=== PATIENT | female | born 1950 | race Caucasian/White ===

== ENCOUNTER → 2018-07-22 11:36 | Outpatient (CLI) | payer MEDICARE, SELFPAY ==
--- NOTE | 2018-07-22 | DI.MG.S_ITS ---
BILATERAL DIGITAL SCREENING MAMMOGRAM 3D/2D WITH CAD: 07/22/2018 CLINICAL: Routine screening. Baseline exam. No prior exams were available for comparison. The tissue of both breasts is extremely dense, which lowers the sensitivity of mammography. Current study was also evaluated with a Computer Aided Detection (CAD) system. No significant masses, calcifications, or other findings are seen in either breast. IMPRESSION: NEGATIVE There is no mammographic evidence of malignancy. A 1 year screening mammogram is recommended. This exam was interpreted at Station ID: [id number]. NOTE: For mammograms, a report in lay terms will be sent to the patient. Approximately 15% of breast malignancies will not be visualized mammographically. In the management of a palpable breast mass, a negative mammogram must not discourage biopsy of a clinically suspicious lesion. Electronically Signed By: Isabelle valentin/chana:07/22/2018 12:36:55 letter sent: Normal Exam ACR BI-RADS Category 1: Negative 3341F
== END ==
PROVIDERS: PCP Internal Medicine; Visit Provider Internal Medicine
DX: Z12.31 Encounter for screening mammogram for malignant neoplasm of breast (principal); M85.88 Other specified disorders of bone density and structure, other site; Z78.0 Asymptomatic menopausal state; Z82.62 Family history of osteoporosis
CPT/HCPCS: 77063; 77067; 77080

== ENCOUNTER → 2018-10-23 10:32 | Outpatient (CLI) | payer MEDICARE, SELFPAY ==
[2018-10-23 12:28] LABS: Alanine Aminotransferase 28 IU/L (9-52); Albumin 4.3 g/dL (3.5-5.0); Albumin Globulin Ratio 1.6 (1.0-2.8); Alkaline Phosphatase 63 U/L (38-126); Aspartate Aminotransferase 23 IU/L (14-36); Bilirubin Total 0.5 mg/dL (0.2-1.3); Blood Urea Nitrogen 20 mg/dL (7-17); Calcium 9.1 mg/dL (8.4-10.2); Carbon Dioxide 27 mmol/L (22-32); Chloride 103 mmol/L (98-107); Cholesterol 194 mg/dL (140-199); Estimated Glomerular Filt Rate > 60.0 mL/min (>60); Globulin 2.7 g/dL (1.7-4.1); Glucose 77 mg/dL (80-110); HDL Cholesterol 75 mg/dL (40-60); HEMOLYSIS < 15 (0-50); LDL Cholesterol Calculated 100 mg/dL (<100); Potassium 4.4 mmol/L (3.4-5.1); Sodium 139 mmol/L (137-145); Triglycerides 93 mg/dL (35-150)
== END ==
PROVIDERS: PCP Internal Medicine; Visit Provider Internal Medicine
DX: Z13.1 Encounter for screening for diabetes mellitus (principal); Z13.220 Encounter for screening for lipoid disorders; E78.5 Hyperlipidemia, unspecified
CPT/HCPCS: 36415; 80053; 80061

== ENCOUNTER → 2019-08-08 12:36 | Outpatient (CLI) | payer MEDICARE, SELFPAY ==
--- NOTE | 2019-08-08 | DI.MG.S_ITS ---
BILATERAL DIGITAL SCREENING MAMMOGRAM 3D/2D WITH CAD: 08/08/2019 CLINICAL: Routine screening. Comparison is made to exam dated: 07/22/2018 [facility]. The tissue of both breasts is extremely dense, which lowers the sensitivity of mammography. Current study was also evaluated with a Computer Aided Detection (CAD) system. No significant masses, calcifications, or other findings are seen in either breast. There has been no significant interval change. IMPRESSION: NEGATIVE There is no mammographic evidence of malignancy. A 1 year screening mammogram is recommended. This exam was interpreted at Station ID: [id number]. NOTE: For mammograms, a report in lay terms will be sent to the patient. Approximately 15% of breast malignancies will not be visualized mammographically. In the management of a palpable breast mass, a negative mammogram must not discourage biopsy of a clinically suspicious lesion. Electronically Signed By: Isabelle valentin/chana:08/10/2019 10:48:52 letter sent: Normal Exam ACR BI-RADS Category 1: Negative 3341F
== END ==
PROVIDERS: PCP Internal Medicine; Visit Provider Internal Medicine
DX: Z12.31 Encounter for screening mammogram for malignant neoplasm of breast (principal)
CPT/HCPCS: 77063; 77067

== ENCOUNTER → 2019-08-31 19:42 | Outpatient (ROUT) | payer MEDICARE, SELFPAY ==
[2019-08-31 19:51] LABS: Hematocrit 38.3 % (36-46); Mean Corpuscular HGB Conc 33.9 % (30-36); Mean Corpuscular Hemoglobin 32.4 PG (26-34); Mean Corpuscular Volume 95.5 fL (80-100); Platelet Count 249 X10^3/uL (150-400); Red Blood Cell Count 4.01 X10^6/uL (4.0-5.2); Red Cell Distribution Width 13.2 % (11.6-14.8); White Blood Cell Count 4.1 X10^3/uL (4.5-11.0)
[2019-08-31 20:27] LABS: TSH w/ Reflex to FT4 1.56 uIU/mL (0.47-4.68)
== END ==
PROVIDERS: PCP Internal Medicine; Visit Provider Internal Medicine
DX: L65.9 Nonscarring hair loss, unspecified (principal)
CPT/HCPCS: 84443; 85027

== ENCOUNTER → 2020-01-25 09:38 | Outpatient (CLI) | payer MEDICARE, SELFPAY ==
[2020-01-25 11:30] LABS: Hemoglobin A1C% w Est Avg Glu 5.4 % (4.0-6.0)
[2020-01-25 12:12] LABS: Glucose 79 mg/dL (80-110)
== END ==
PROVIDERS: PCP Internal Medicine; Referring Provider Internal Medicine; Visit Provider Internal Medicine
DX: R73.01 Impaired fasting glucose (principal)
CPT/HCPCS: 36415; 82947; 83036

== ENCOUNTER → 2020-05-04 11:16 | Outpatient (CLI) | payer MEDICARE, SELFPAY ==
--- NOTE | 2020-05-04 | DI.RAD.S_ITS ---
PROCEDURE: XR CHEST 2V INDICATIONS: COUGH TECHNIQUE: 2 views of the chest were acquired. COMPARISON: None. FINDINGS: Surgical changes and devices: None. Lungs and pleura: Lungs are clear. No pleural effusions or pneumothorax. Mediastinum: Mediastinal contours are normal. Heart size is normal. Bones and chest wall: No suspicious bony abnormalities. Soft tissues appear unremarkable. IMPRESSION: No acute disease. Dictated by: Sam Martinez M.D. on 05/04/2020 at 13:04 Approved by: Sam Martinez M.D. on 05/04/2020 at 13:15
== END ==
PROVIDERS: PCP Internal Medicine; Referring Provider Internal Medicine; Visit Provider Internal Medicine
DX: R05 Cough (principal)
CPT/HCPCS: 71046

== ENCOUNTER 2020-08-24 09:45 | Outpatient (RCR) | payer MEDICARE, SELFPAY ==
--- NOTE | 2020-08-23 15:52 | PT.OIE ---
Current Diagnoses Adhesive capsulitis of right shoulder (08/23/20) Visit Care Team Role Provider Type Maria Ines Moreno MD Attending Provider Physician Family Provider Primary Care Provider Referring Provider Specialty: Internal Medicine Address: [address] [place] [address], [id number] Email: [email or web address] Initial Evaluation PT-OP-A Visit Information Start: 08/22/20 07:23 Freq: Status: Active Protocol: Document 08/23/20 13:07 MB (Rec: 08/23/20 13:26 MB [id number]) Out-Patient Physical Therapy Visit Information Visit Information Visit Type Initial Evaluation Visit Note Medicare Visit Start Time 13:07 Visit Stop Time 14:07 Total Visit Minutes 60 Visit Number 1 Number of PRINTING EQUIPMENT MECHANIC Visits 0 Evaluation Information Evaluation Date 08/23/20 PT-OP-B Current Condition Start: 08/22/20 07:23 Freq: Status: Active Protocol: Document 08/23/20 13:07 MB (Rec: 08/23/20 13:26 MB [id number]) Current Condition History of Current Condition Onset Date February or March 2020 Current Complaints Right anterior shoulder pain History of Current Condition Pt reports that in February or March 2020, she was demonstrating a push-up on a wall and she injured her right shoulder. It has gotten worse . Pt reports 4/10 anterior right shoulder pain. She is right handed. Pt did have an episode when picking groceries where she felt something give . She has a lot of trouble with reaching back, especially in the car. She has has a lot of trouble finding a comfortable position to sleep in. She likes to sleep on her side. She likes stretching exercises . Pt reports trouble with arthritis in her fingers and she rubs her thumbs. She consumes a lot of aspirin. Pt was performing a lot of biceps curls and swinging weights forward and then behind her. PMH: arthritis, back pain and received PT and it got better, depression. Pt is very apprehensive about her right shoulder pain and disuse. Treatment Goals Patient/Caregiver Goals To improve range of motion and use of right arm and to decrease pain PT-OP-C Subjective Start: 08/22/20 07:23 Freq: Status: Active Protocol: Document 08/23/20 13:07 MB (Rec: 08/23/20 13:26 MB [id number]) OP-PT Subjective Patient Comments Patient Comments See history of current condition Patient Questionnaires Quick Dash- Upper Extremity Quick Dash UE Score 28 Quick Dash UE Impairment 20 to 39% Impaired (Score 20- 39) PT-OP-J Posture/Palpation/Skin Start: 08/22/20 07:23 Freq: Status: Active Protocol: Document 08/23/20 13:07 MB (Rec: 08/23/20 15:45 MB [id number]) Posture Evaluation Comments Posture Comments Pt standing, wearing boots: forward head, rounded shoulders with right shoulder and scapula more forward than the left, Dowager's hump, decreased thoracic kyphosis, increased lumbar lordosis, posterior tilt pelvis, decreased muscle mass over shoulder blades and shoulders with B scapular winging, right iliac crest higher than the left and head rests in 5 deg right rotation and left SB PT-OP-K Range of Motion Start: 08/22/20 07:23 Freq: Status: Active Protocol: Document 08/23/20 13:07 MB (Rec: 08/23/20 15:45 MB [id number]) Cervical Spine Range of Motion Cervical Spine Active Testing Position Standing Flexion 28 Extension 35 Rotation Left 48 Rotation Right 50 Lateral Flexion Left 15 Lateral Flexion Right 10 Shoulder Goniometric Range of Motion Shoulder Left Active Shoulder ROM WFL Yes Testing Position Standing Flexion 175 Abduction 160 Internal Rotation Behind Back (text) thumb to T7 Comments Pt hook lying PROM shoulder ER and IR with arm in 90/90: ER normal and IR 45 dep Right Active Shoulder ROM WFL No Testing Position Standing Flexion 160 Abduction 150 Internal Rotation Behind Back (text) thumb to T9 Comments Pt hook lying PROM shoulder ER and IR with arm in 90/90: ER normal to hypermobile and IR stopped d/t pain at 20 deg PT-OP-M Strength Start: 08/22/20 07:23 Freq: Status: Active Protocol: Document 08/23/20 13:07 MB (Rec: 08/23/20 15:45 MB [id number]) Shoulder Strength Shoulder Manual Muscle Testing Left Flexion 5 Normal Abduction (C5) 4 Good External Rotation 3+ Fair+ Internal Rotation 4 Good Right Comments All shoulder MMT deferred d/t pain Elbow/Forearm Strength Elbow and Forearm Manual Muscle Testing Left Flexion (C6) 5 Normal Extension (C7) 5 Normal Pronation 5 Normal Supination 5 Normal Right Comments Deferred MMT d/t shoulder pain Wrist Strength Wrist Manual Muscle Testing Left Flexion (C7) 5 Normal Extension (C6) 5 Normal Right Flexion (C7) 5 Normal Extension (C6) 5 Normal PT-OP-Q Treatments Start: 08/22/20 07:23 Freq: Status: Active Protocol: Document 08/23/20 13:07 MB (Rec: 08/23/20 15:45 MB [id number]) Self-Care/Home Management Treatment Education Other Education Education to pt about proper sleeping position to support arm: cervical support with towel roll in pillow case, pillow support between arms. Ed pt in the benefits of frozen vegetables for shoulder pain. 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 PT-OP-T Assessment and Plan Start: 08/22/20 07:23 Freq: Status: Active Protocol: Document 08/23/20 13:07 MB (Rec: 08/23/20 15:45 MB [id number]) Physical Therapy Assessment Rehab Potential Rehabilitation Potential Fair Evaluation Complexity Number of Personal Factors/Comorbidities 1-2 Number of Body Systems Impaired 1-2 Clinical Presentation at Evaluation Evolving Impairments Impairments Activity Tolerance,Functional Activities,Pain,Posture,ROM, Soft Tissue Mobility,Strength Goals 4 Appraisal Analyst Goal (LTG) Pt will perform progressive HEP with I including right shoulder ROM, thoracic flexibility, core, intrascapular and shoulder strengthening and relaxation exercises to improve right arm use and pain by 10/21/20. LTG Duration 8 weeks 3 Appraisal Analyst Goal (LTG) Pt will present with improve right shoulder abduction, flexion, IR, ER and shoulder flexion and extension MMT strength to at least 4/5 to improve functional strength for ADLs by 10/21/20. LTG Duration 8 weeks 2 Mcc Goal (LTG) Pt will present with improved active right shoulder flexion and abduction and passive IR equal to the left to improve functional activity performance by 10/21/20. LTG Duration 8 weeks 1 Appraisal Analyst Goal (LTG) Pt will present with an improved QuickDASH score to reflect no more than 10% impairment to allow return to PLOF including exercise and caring for her dog with right hand by 10/21/20. LTG Duration 8 weeks Assessment Summary Assessment Pt is a 70 y/o female presenting with right shoulder pain and decreased AROM in setting of injury. Her presentation does not really reflect adhesive capsulitis unless it is a very mild case because she mostly has limitations with IR but can still reach behind her back to T9. She does have painful and slightly reduced active right shoulder abduction and flexion. PT favors rotator cuff injury vs labral injury. She will benefit from PT to improve range, strength, pain, posture and thoracic flexibility. Pt lives on [address] [place] and in [place] and getting to PT may be challenging. She also has many life stressors. These are barriers to PT. Physical Therapy Plan Frequency and Duration Frequency of Treatment 2x/Week Duration of Treatment 8 weeks Plan of Care Start Date 08/23/20 Plan of Care End Date 10/21/20 Therapeutic Interventions Therapeutic Interventions Canalithic Repositioning,Home Exercise Program,Joint Mobilizations,Manual Therapy, Neuromuscular Re-education, Patient/Caregiver Education, Self-Care/Home Management,Soft Tissue Mobilization,Taping, Therapeutic Exercises Modalities Cold Pack/Ice Massage,Electric Stimulation,Hot Packs, Ultrasound Next Visit Focus/Plan Next Note Type Treatment Note Next Visit Plan Initiate self-racquet ball massage, cane AAROM, initiate manual work and [place] Protocol as appropriate
--- NOTE | 2020-08-23 15:52 | PT.OPPOC ---
Physical, Occupational & Speech Therapy At [facility] Current Diagnoses Adhesive capsulitis of right shoulder (08/23/20) Visit Care Team Role Provider Type Maria Ines Moreno MD Attending Provider Physician Family Provider Primary Care Provider Referring Provider Specialty: Internal Medicine Address: [address] [place] [address], [address] Email: [email or web address] Plan Of Care PT-OP-T Assessment and Plan Start: 08/22/20 07:23 Freq: Status: Active Protocol: Document 08/23/20 13:07 MB (Rec: 08/23/20 15:45 MB [id number]) Physical Therapy Assessment Rehab Potential Rehabilitation Potential Fair Evaluation Complexity Number of Personal Factors/Comorbidities 1-2 Number of Body Systems Impaired 1-2 Clinical Presentation at Evaluation Evolving Impairments Impairments Activity Tolerance,Functional Activities,Pain,Posture,ROM, Soft Tissue Mobility,Strength Goals 4 Pulp Piler Goal (LTG) Pt will perform progressive HEP with I including right shoulder ROM, thoracic flexibility, core, intrascapular and shoulder strengthening and relaxation exercises to improve right arm use and pain by 10/21/20. LTG Duration 8 weeks 3 Pulp Piler Goal (LTG) Pt will present with improve right shoulder abduction, flexion, IR, ER and shoulder flexion and extension MMT strength to at least 4/5 to improve functional strength for ADLs by 10/21/20. LTG Duration 8 weeks 2 Pulp Piler Goal (LTG) Pt will present with improved active right shoulder flexion and abduction and passive IR equal to the left to improve functional activity performance by 10/21/20. LTG Duration 8 weeks 1 Fpc Goal (LTG) Pt will present with an improved QuickDASH score to reflect no more than 10% impairment to allow return to PLOF including exercise and caring for her dog with right hand by 10/21/20. LTG Duration 8 weeks Assessment Summary Assessment Pt is a 70 y/o female presenting with right shoulder pain and decreased AROM in setting of injury. Her presentation does not really reflect adhesive capsulitis unless it is a very mild case because she mostly has limitations with IR but can still reach behind her back to T9. She does have painful and slightly reduced active right shoulder abduction and flexion. PT favors rotator cuff injury vs labral injury. She will benefit from PT to improve range, strength, pain, posture and thoracic flexibility. Pt lives on [address] and in [place] and getting to PT may be challenging. She also has many life stressors. These are barriers to PT. Physical Therapy Plan Frequency and Duration Frequency of Treatment 2x/Week Duration of Treatment 8 weeks Plan of Care Start Date 08/23/20 Plan of Care End Date 10/21/20 Therapeutic Interventions Therapeutic Interventions Canalithic Repositioning,Home Exercise Program,Joint Mobilizations,Manual Therapy, Neuromuscular Re-education, Patient/Caregiver Education, Self-Care/Home Management,Soft Tissue Mobilization,Taping, Therapeutic Exercises Modalities Cold Pack/Ice Massage,Electric Stimulation,Hot Packs, Ultrasound Next Visit Focus/Plan Next Note Type Treatment Note Next Visit Plan Initiate self-racquet ball massage, cane AAROM, initiate manual work and [place] Protocol as appropriate Plan of Care Dates Plan of Care Start Date 08/23/20 Plan of Care End Date 10/21/20 Electronically Signed by: Guillermina Arzate, PT 08/23/20 [id number] Please Sign and Return: I have reviewed this Plan of Care and certify that the skilled therapy services above are required to meet the patient?s needs. Physician Signature Date Printed Name and Credentials Clinical Instructor Signature Printed Name and Credentials
--- NOTE | 2020-08-24 10:36 | PT.OTN ---
Current Diagnoses Adhesive capsulitis of right shoulder (08/24/20) Physical Therapy Treatment Note PT-OP-A Visit Information Start: 08/22/20 07:23 Freq: Status: Active Protocol: Document 08/24/20 09:46 MB (Rec: 08/24/20 10:29 MB [id number]) Out-Patient Physical Therapy Visit Information Visit Information Visit Type Treatment Note Visit Start Time 09:46 Visit Stop Time 10:30 Total Visit Minutes 44 Visit Number 2 PT-OP-B Current Condition Start: 08/22/20 07:23 Freq: Status: Active Protocol: Document 08/23/20 13:07 MB (Rec: 08/23/20 13:26 MB [id number]) Current Condition History of Current Condition Onset Date February or March 2020 Current Complaints Right anterior shoulder pain History of Current Condition Pt reports that in February or March 2020, she was demonstrating a push-up on a wall and she injured her right shoulder. It has gotten worse . Pt reports 4/10 anterior right shoulder pain. She is right handed. Pt did have an episode when picking groceries where she felt something give . She has a lot of trouble with reaching back, especially in the car. She has has a lot of trouble finding a comfortable position to sleep in. She likes to sleep on her side. She likes stretching exercises . Pt reports trouble with arthritis in her fingers and she rubs her thumbs. She consumes a lot of aspirin. Pt was performing a lot of biceps curls and swinging weights forward and then behind her. PMH: arthritis, back pain and received PT and it got better, depression. Pt is very apprehensive about her right shoulder pain and disuse. Treatment Goals Patient/Caregiver Goals To improve range of motion and use of right arm and to decrease pain PT-OP-C Subjective Start: 08/22/20 07:23 Freq: Status: Active Protocol: Document 08/24/20 09:46 MB (Rec: 08/24/20 10:29 MB [id number]) OP-PT Subjective Patient Comments Patient Comments Pt does not know what she is going to do yet as far as therapy. PT-OP-J Posture/Palpation/Skin Start: 08/22/20 07:23 Freq: Status: Active Protocol: Document 08/23/20 13:07 MB (Rec: 08/23/20 15:45 MB [id number]) Posture Evaluation Comments Posture Comments Pt standing, wearing boots: forward head, rounded shoulders with right shoulder and scapula more forward than the left, Dowager's hump, decreased thoracic kyphosis, increased lumbar lordosis, posterior tilt pelvis, decreased muscle mass over shoulder blades and shoulders with B scapular winging, right iliac crest higher than the left and head rests in 5 deg right rotation and left SB PT-OP-K Range of Motion Start: 08/22/20 07:23 Freq: Status: Active Protocol: Document 08/23/20 13:07 MB (Rec: 08/23/20 15:45 MB [id number]) Cervical Spine Range of Motion Cervical Spine Active Testing Position Standing Flexion 28 Extension 35 Rotation Left 48 Rotation Right 50 Lateral Flexion Left 15 Lateral Flexion Right 10 Shoulder Goniometric Range of Motion Shoulder Left Active Shoulder ROM WFL Yes Testing Position Standing Flexion 175 Abduction 160 Internal Rotation Behind Back (text) thumb to T7 Comments Pt hook lying PROM shoulder ER and IR with arm in 90/90: ER normal and IR 45 dep Right Active Shoulder ROM WFL No Testing Position Standing Flexion 160 Abduction 150 Internal Rotation Behind Back (text) thumb to T9 Comments Pt hook lying PROM shoulder ER and IR with arm in 90/90: ER normal to hypermobile and IR stopped d/t pain at 20 deg PT-OP-M Strength Start: 08/22/20 07:23 Freq: Status: Active Protocol: Document 08/23/20 13:07 MB (Rec: 08/23/20 15:45 MB [id number]) Shoulder Strength Shoulder Manual Muscle Testing Left Flexion 5 Normal Abduction (C5) 4 Good External Rotation 3+ Fair+ Internal Rotation 4 Good Right Comments All shoulder MMT deferred d/t pain Elbow/Forearm Strength Elbow and Forearm Manual Muscle Testing Left Flexion (C6) 5 Normal Extension (C7) 5 Normal Pronation 5 Normal Supination 5 Normal Right Comments Deferred MMT d/t shoulder pain Wrist Strength Wrist Manual Muscle Testing Left Flexion (C7) 5 Normal Extension (C6) 5 Normal Right Flexion (C7) 5 Normal Extension (C6) 5 Normal PT-OP-Q Treatments Start: 08/22/20 07:23 Freq: Status: Active Protocol: Document 08/24/20 09:46 MB (Rec: 08/24/20 10:29 MB [id number]) Therapeutic Exercises Supine Exercises AAROM with cane in supine Comments Pt reports clicking with flexion and pain 5 reps slowly to 90 deg Standing Exercises Theracane MWM upper traps Side right Comments Hold TrP with cane and active cervical ROM away Deltoid STM Side right Comments TrP pressure with racquet ball MWM infraspinatus Side right Comments Pt with clicking with active ER and IR so ed to stop Intrascapular massage with racquet ball Side bilateral Comments Pulsate into the wall, TrP pressure for massage, MWM with active cervical r Self-Care/Home Management Treatment Education Other Education Ongoing ed pt about what PT suspects about arm, benefits of changing sleeping position, use of ice, stopping exercises that hurt, encourage walking and LE exercises that do not hurt her shoulder, follow-up with Maria Ines Moreno about findings today (clicking , pain, hypermobile) PT-OP-T Assessment and Plan Start: 08/22/20 07:23 Freq: Status: Active Protocol: Document 08/24/20 09:46 MB (Rec: 08/24/20 10:29 MB [id number]) Physical Therapy Assessment Rehab Potential Rehabilitation Potential Fair Evaluation Complexity Number of Personal Factors/Comorbidities 1-2 Number of Body Systems Impaired 1-2 Clinical Presentation at Evaluation Evolving Impairments Impairments Activity Tolerance,Functional Activities,Pain,Posture,ROM, Soft Tissue Mobility,Strength Goals 4 Weed Controller Goal (LTG) Pt will perform progressive HEP with I including right shoulder ROM, thoracic flexibility, core, intrascapular and shoulder strengthening and relaxation exercises to improve right arm use and pain by 10/21/20. LTG Duration 8 weeks 3 Weed Controller Goal (LTG) Pt will present with improve right shoulder abduction, flexion, IR, ER and shoulder flexion and extension MMT strength to at least 4/5 to improve functional strength for ADLs by 10/21/20. LTG Duration 8 weeks 2 Detention Goal (LTG) Pt will present with improved active right shoulder flexion and abduction and passive IR equal to the left to improve functional activity performance by 10/21/20. LTG Duration 8 weeks 1 Weed Controller Goal (LTG) Pt will present with an improved QuickDASH score to reflect no more than 10% impairment to allow return to PLOF including exercise and caring for her dog with right hand by 10/21/20. LTG Duration 8 weeks Assessment Summary Assessment Pt con't with life that is up in the air as far as living location and self-care ( sleeping with her dog). Pt states she does not know what she is doing with PT cueing for racquet ball but does not stop to listen well to PT's education and reasoning and so therapeutic exercise education is challenging. She has clicking with active right shoulder ER and IR and so PT ed her to stop the movement. She reports history of dizziness but does not want to talk about it or address it right now. PT provides education. Pt with clicking at right AC joint and around the capsule with AAROM right shoulder flexion with cane. PT is concerned about unstable joint and so will send this note to referring provider. Pt does not know if she can come to PT with the weather with flying and the boat. Physical Therapy Plan Frequency and Duration Frequency of Treatment 2x/Week Duration of Treatment 8 weeks Plan of Care Start Date 08/23/20 Plan of Care End Date 10/21/20 Therapeutic Interventions Therapeutic Interventions Canalithic Repositioning,Home Exercise Program,Joint Mobilizations,Manual Therapy, Neuromuscular Re-education, Patient/Caregiver Education, Self-Care/Home Management,Soft Tissue Mobilization,Taping, Therapeutic Exercises Modalities Cold Pack/Ice Massage,Electric Stimulation,Hot Packs, Ultrasound Other Referrals/Consults Referrals/Consults Recommended Will send this note to Maria Ines Moreno, concern for unstable right shoulder joint in setting of lifting injury when moving sodas, clicking and pain with AROM ER and IR and AAROM with cane today (flexion in supine) and PROM ER hypermobile. She might benefit from diagnostics to determine if there is a labral or other issue. Next Visit Focus/Plan Next Note Type Treatment Note Next Visit Plan Progress exercises including isometrics, initiate manual work and [place] Protocol as appropriate
--- NOTE | 2020-08-31 15:50 | PT.OPDS ---
Current Diagnoses Adhesive capsulitis of right shoulder (08/24/20) Visit Care Team Role Provider Type Maria Ines Moreno MD Attending Provider Physician Family Provider Primary Care Provider Referring Provider Specialty: Internal Medicine Address: [address] [place] [address], [id number] Email: [email or web address] Visit Number Visit Number 2 Discharge Summary PT-OP-B Current Condition Start: 08/22/20 07:23 Freq: Status: Active Protocol: Document 08/23/20 13:07 MB (Rec: 08/23/20 13:26 MB [id number]) Current Condition History of Current Condition Onset Date February or March 2020 Current Complaints Right anterior shoulder pain History of Current Condition Pt reports that in February or March 2020, she was demonstrating a push-up on a wall and she injured her right shoulder. It has gotten worse . Pt reports 4/10 anterior right shoulder pain. She is right handed. Pt did have an episode when picking groceries where she felt something give . She has a lot of trouble with reaching back, especially in the car. She has has a lot of trouble finding a comfortable position to sleep in. She likes to sleep on her side. She likes stretching exercises . Pt reports trouble with arthritis in her fingers and she rubs her thumbs. She consumes a lot of aspirin. Pt was performing a lot of biceps curls and swinging weights forward and then behind her. PMH: arthritis, back pain and received PT and it got better, depression. Pt is very apprehensive about her right shoulder pain and disuse. Treatment Goals Patient/Caregiver Goals To improve range of motion and use of right arm and to decrease pain PT-OP-C Subjective Start: 08/22/20 07:23 Freq: Status: Active Protocol: Document 08/24/20 09:46 MB (Rec: 08/24/20 10:29 MB [id number]) OP-PT Subjective Patient Comments Patient Comments Pt does not know what she is going to do yet as far as therapy. PT-OP-J Posture/Palpation/Skin Start: 08/22/20 07:23 Freq: Status: Active Protocol: Document 08/23/20 13:07 MB (Rec: 08/23/20 15:45 MB [id number]) Posture Evaluation Comments Posture Comments Pt standing, wearing boots: forward head, rounded shoulders with right shoulder and scapula more forward than the left, Dowager's hump, decreased thoracic kyphosis, increased lumbar lordosis, posterior tilt pelvis, decreased muscle mass over shoulder blades and shoulders with B scapular winging, right iliac crest higher than the left and head rests in 5 deg right rotation and left SB PT-OP-K Range of Motion Start: 08/22/20 07:23 Freq: Status: Active Protocol: Document 08/23/20 13:07 MB (Rec: 08/23/20 15:45 MB [id number]) Cervical Spine Range of Motion Cervical Spine Active Testing Position Standing Flexion 28 Extension 35 Rotation Left 48 Rotation Right 50 Lateral Flexion Left 15 Lateral Flexion Right 10 Shoulder Goniometric Range of Motion Shoulder Left Active Shoulder ROM WFL Yes Testing Position Standing Flexion 175 Abduction 160 Internal Rotation Behind Back (text) thumb to T7 Comments Pt hook lying PROM shoulder ER and IR with arm in 90/90: ER normal and IR 45 dep Right Active Shoulder ROM WFL No Testing Position Standing Flexion 160 Abduction 150 Internal Rotation Behind Back (text) thumb to T9 Comments Pt hook lying PROM shoulder ER and IR with arm in 90/90: ER normal to hypermobile and IR stopped d/t pain at 20 deg PT-OP-M Strength Start: 08/22/20 07:23 Freq: Status: Active Protocol: Document 08/23/20 13:07 MB (Rec: 08/23/20 15:45 MB [id number]) Shoulder Strength Shoulder Manual Muscle Testing Left Flexion 5 Normal Abduction (C5) 4 Good External Rotation 3+ Fair+ Internal Rotation 4 Good Right Comments All shoulder MMT deferred d/t pain Elbow/Forearm Strength Elbow and Forearm Manual Muscle Testing Left Flexion (C6) 5 Normal Extension (C7) 5 Normal Pronation 5 Normal Supination 5 Normal Right Comments Deferred MMT d/t shoulder pain Wrist Strength Wrist Manual Muscle Testing Left Flexion (C7) 5 Normal Extension (C6) 5 Normal Right Flexion (C7) 5 Normal Extension (C6) 5 Normal PT-OP-T Assessment and Plan Start: 08/22/20 07:23 Freq: Status: Active Protocol: Document 08/31/20 15:48 MB (Rec: 08/31/20 15:50 MB [id number]) Physical Therapy Plan Discharge Physical Therapy Discharge Reasons No Longer Attending PT Discharge Comments Pt did not make more appointments for PT after evaluation and initial appointment. She has transportation conflicts-- lives on [place] and has to fly in to [place] or drive up from [place]. PT offered many options for pt and pt did not schedule more appointments. Left message this a.m. for her to call for more appointments if interested and she did not return call. Will d/c PT.
== END 2020-09-05 15:01 | disposition home or self-care (01) ==
LOC: PHYS 09:45
PROVIDERS: Family Provider Internal Medicine; PCP Internal Medicine; Referring Provider Internal Medicine; Visit Provider Internal Medicine
DX: M75.01 Adhesive capsulitis of right shoulder (principal)
CPT/HCPCS: 97110; 97161; 97535

== ENCOUNTER → 2020-08-24 10:49 | Outpatient (CLI) | payer MEDICARE, SELFPAY ==
--- NOTE | 2020-08-24 10:54 | DI.MG.S_ITS ---
BILATERAL DIGITAL SCREENING MAMMOGRAM 3D/2D WITH CAD: 08/24/2020 CLINICAL: Routine screening. Comparison is made to exams dated: 08/08/2019 mammogram and 07/22/2018 mammogram - [facility]. The tissue of both breasts is extremely dense, which lowers the sensitivity of mammography. Current study was also evaluated with a Computer Aided Detection (CAD) system. No significant masses, calcifications, or other findings are seen in either breast. There has been no significant interval change. IMPRESSION: NEGATIVE There is no mammographic evidence of malignancy. A 1 year screening mammogram is recommended. This exam was interpreted at Station ID: [id number]. NOTE: For mammograms, a report in lay terms will be sent to the patient. Approximately 15% of breast malignancies will not be visualized mammographically. In the management of a palpable breast mass, a negative mammogram must not discourage biopsy of a clinically suspicious lesion. Electronically Signed By: Faustino awan/chana:08/24/2020 12:48:51 letter sent: Normal Exam ACR BI-RADS Category 1: Negative 3341F
== END ==
PROVIDERS: Family Provider Internal Medicine; PCP Internal Medicine; Referring Provider Internal Medicine; Visit Provider Internal Medicine
DX: Z12.31 Encounter for screening mammogram for malignant neoplasm of breast (principal)
CPT/HCPCS: 77063; 77067

== ENCOUNTER → 2020-10-14 13:46 | Outpatient (CLI) | payer MEDICARE, SELFPAY ==
[2020-10-14] MEDS: COVID-19 VACC, Ad26(JANSSEN)/PF 0.5 ML IM (14:01)
== END ==
PROVIDERS: Family Provider Internal Medicine; PCP Internal Medicine; Visit Provider Internal Medicine
DX: Z23 Encounter for immunization (principal)
CPT/HCPCS: 0031A; 91303

== ENCOUNTER → 2021-09-13 15:26 | Outpatient (CLI) | payer MEDICARE, SELFPAY ==
--- NOTE | 2021-09-13 | DI.MG.S_ITS ---
BILATERAL DIGITAL SCREENING MAMMOGRAM 3D/2D WITH CAD: 09/13/2021 CLINICAL: Routine screening. Comparison is made to exams dated: 08/24/2020 mammogram, 08/08/2019 mammogram, and 07/22/2018 mammogram - [facility]. The tissue of both breasts is extremely dense, which lowers the sensitivity of mammography. Current study was also evaluated with a Computer Aided Detection (CAD) system. No significant masses, calcifications, or other findings are seen in either breast. There has been no significant interval change. IMPRESSION: NEGATIVE There is no mammographic evidence of malignancy. A 1 year screening mammogram is recommended. This exam was interpreted at Station ID: [id number]. NOTE: For mammograms, a report in lay terms will be sent to the patient. Approximately 15% of breast malignancies will not be visualized mammographically. In the management of a palpable breast mass, a negative mammogram must not discourage biopsy of a clinically suspicious lesion. Electronically Signed By: Kunal ruff/chana:09/13/2021 18:04:10 letter sent: Normal Exam ACR BI-RADS Category 1: Negative 3341F
== END ==
PROVIDERS: Family Provider Internal Medicine; PCP Internal Medicine; Referring Provider Internal Medicine; Visit Provider Internal Medicine
DX: Z12.31 Encounter for screening mammogram for malignant neoplasm of breast (principal)
CPT/HCPCS: 77063; 77067

== ENCOUNTER → 2021-10-09 10:53 | Outpatient (CLI) | payer MEDICARE, SELFPAY ==
[2021-10-09 14:52] LABS: COVID19 -Nasal RAPID Negative (Negative)
== END ==
PROVIDERS: Family Provider Internal Medicine; PCP Internal Medicine; Visit Provider Surgery
DX: Z20.822 Contact with and (suspected) exposure to COVID-19 (principal)
CPT/HCPCS: 87635; C9803

== ENCOUNTER 2021-10-10 11:16 | Day surgery (SDC) | payer MEDICARE, SELFPAY ==
[2021-10-10] MEDS: LACTATED RINGERS 1,000 ML 84 ML IV (11:41)
[2021-10-10 11:45] VITALS: BP 114/76; PULSE 77; RESP 16; TEMP 36.4; O2SAT 97; BMI 20.9
[2021-10-10] MEDS: MIDAZOLAM 5 MG/5 ML VIAL IV (12:39)
[2021-10-10] MEDS: fentaNYL 250 MCG/5 ML INJ IV (12:40)
--- NOTE | 2021-10-10 12:47 | PM.HP.1 ---
History of Present Illness History of Present Illness Date Patient Seen: 10/10/21 Time Patient Seen: 12:47 Chief complaint: SDC Narrative: The patient presents for colorectal screening. Previous colonoscopy 10-12 years ago was normal. No personal or family history of colon cancer. On further history denies any recent gastrointestinal symptoms. No nausea, vomiting, abdominal pain, loss of appetite, unexplained weight loss, change in bowel habits, diarrhea, constipation, melena, hematochezia, or bright red blood per rectum. Patient History Family & Social History Social History: household members spouse Tobacco & Substance use: Smoking Status Never smoker alcohol intake never Substance Use Type does not use Meds Home Medications and Allergies Home Medications Medication Instructions Recorded Confirmed Type sertraline 25 mg tablet 50 mg PO DAILY 10/10/21 10/10/21 History Allergies Allergy/AdvReac Type Severity Reaction Status Date / Time No Known Drug Allergies Allergy Verified 10/10/21 11:43 Exam Vital Signs (past 8 hours): - 10/10/21 11:45 Temperature 97.6 F Pulse Rate 77 Respiratory Rate 16 Blood Pressure 114/76 Pulse Oximetry 97 Oxygen Delivery Method Room Air Narrative Exam Narrative: GENERAL: Adult woman in no apparent distress HEENT: No scleral icterus CV: Regular rate, no peripheral edema LUNGS: No increased work of breathing. Patient speaks in full sentences without oxygen support. ABDOMEN: Soft, non-tender, non-distended NEURO: Nonfocal, normal strength throughout SKIN: Warm and dry Assessment & Plan Assessment & Plan narrative: The patient requires colorectal screening and colonoscopy is recommended. Technical details were discussed. Risks, benefits, alternatives explained. Risks including but not limited to myocardial infarction, aspiration, bleeding, pain, missed lesion, incomplete examination, need for further radiographic studies, colonic perforation, and need for major abdominal surgery were discussed. All questions were answered to their satisfaction, and they are in agreement with this plan. Time Spent With Patient Critical Care time: I spent a total of [] minutes of critical care time on this patient's care today; this time is exclusive of procedural time.
--- NOTE | 2021-10-10 13:17 | PM.OP.COLON ---
Operative Date/Time/Diagnoses Date of procedure: 10/10/21 Time of procedure: 13:17 Post-op diagnosis: same Procedure & Clinicians Study performed: Colonoscopy Same procedure as scheduled: Yes Indications: Screening Surgeon: Elton Perez Procedure Notes Procedure in detail: Medications: Conscious sedation using 3 mg IV midazolam and 150 mcg IV of fentanyl The history and physical was performed/updated and the patient is ASA class is 2. The procedure was discussed in detail with the patient. Potential risks complications including infection, bleeding, missed diagnosis, perforation, need for surgery, and were explained. Their questions were answered and informed consent was obtained. Patient was brought to the procedure room and placed standard monitoring equipment. The patient's vital signs were monitored continuously throughout the entire procedure. Prior to starting time-out was performed. The patient was placed in the left lateral recumbent position. Procedural sedation was administered. Examination began with a thorough inspection of the perianal area there was no evidence of fissures, fistulae, external hemorrhoids or cutaneous malignancy. The colonoscopy scope was then placed into the anal canal and was advanced to the cecum, which was identified by the ileocecal valve, the appendiceal orifice and the confluence of the taenia. The scope was then slowly withdrawn examining colon thoroughly in all directions, irrigating it of any residual stool. FINDINGS 1. No masses polyps or inflammation 2. Normal healthy colon The patient tolerated the procedure well. They will be discharged once criteria are met. The prep was of good/excellent quality. The withdrawl time was 8 minutes. The sedation time was 24 minutes. Specimen(s): none sent Complications: none Impression: Normal colonoscopy Post-procedure Recommendations: Colonoscopy in 10 years Disposition: same day surgery
[2021-10-10 13:21] VITALS: BP 117/57; PULSE 88; RESP 13; TEMP 36.2; O2SAT 95
[2021-10-10 13:25] VITALS: BP 108/59; PULSE 60; RESP 15; O2SAT 95
[2021-10-10 13:30] VITALS: BP 124/60; PULSE 59; RESP 16; O2SAT 96
[2021-10-10 13:35] VITALS: BP 118/60; PULSE 57; RESP 13; O2SAT 96
--- NOTE | 2021-10-10 13:59 | SUR.PHASEI ---
Per sameera Santos for patient to take taxi to [place] at discharge.
[2021-10-10 14:00] VITALS: BP 115/69; PULSE 62; RESP 18; TEMP 36.9; O2SAT 99
== END 2021-10-10 14:30 | disposition home or self-care (01) ==
PROVIDERS: Surgery; Family Provider Internal Medicine; PCP Internal Medicine; Referring Provider Surgery; Visit Provider Surgery
PROC: 0DJD8ZZ Inspection of Lower Intestinal Tract, Via Natural or Artificial Opening Endoscopic (ICD-10-PCS; CPT 45378; principal; 2021-10-10 12:15)
DX: Z12.11 Encounter for screening for malignant neoplasm of colon (principal)
CPT/HCPCS: G0121; 99152; J2250; J3010

== ENCOUNTER 2021-12-04 16:29 | Emergency (ER) | payer MEDICARE, SELFPAY ==
[2021-12-04 16:32] VITALS: BP 122/71; PULSE 76; RESP 18; TEMP 36.6; O2SAT 97
[2021-12-04] MEDS: TET,DIPH,PERTUSS(ACELL),VAC/PF 0.5 ML SYRINGE IM (16:42)
--- NOTE | 2021-12-04 16:45 | DI.RAD.S_ITS ---
PROCEDURE: XR HAND RT MIN 3V INDICATIONS: dog bite TECHNIQUE: 3 views of the hand(s) acquired. COMPARISON: None. FINDINGS: Bones: Primary osteoarthritis of the wrist and hand. Severe 2nd through 5th DIP degenerative change. Severe 1st carpometacarpal degenerative change. No acute fracture dislocation. No suspicious bony lesions. Soft tissues: No suspicious soft tissue calcifications. No soft tissue gas or foreign body. IMPRESSION: Primary osteoarthritis. No evidence acute bony abnormality of the right hand. If clinical suspicion and/or symptoms persist, further assessment with repeat plain films, or advanced imaging (e.g., CT, MRI, or bone scan) may be helpful for further assessment. Dictated by: Jeremiah Helm M.D. on 12/04/2021 at 17:16 Approved by: Jeremiah Helm M.D. on 12/04/2021 at 17:19
[2021-12-04 19:15] VITALS: BP 142/65; PULSE 64; RESP 16; TEMP 36.6; O2SAT 98
[2021-12-04] MEDS: AMOXICILLIN/CLAV 875/125 MG 1 TAB PO (20:59)
--- NOTE | 2021-12-05 03:30 | ED_ITS ---
HPI - Wound/Laceration General Chief Complaint: Wound/Laceration Stated Complaint: DOG BITE RIGHT HAND Time Seen by Provider: 12/04/21 20:23 Source: patient Mode of arrival: Ambulatory History of Present Illness HPI narrative: 71-year-old female with noncontributory medical history presents with a chief complaint of a dog bite to her right hand suffered earlier in the day. She had been walking her dog by a yardd down in [place] when a head dog came out and was parking at her dog, the 2 proceeded to fight and when she was attempting to separate them she was bitten on her right hand. The dog was aggressive to her dog but there was relative provocation and no reports of the dog acting abnormally after the event. She has small puncture wounds and no significant bleeding. She denies any numbness, weakness or tingling. She is otherwise well and free of complaint. Related Data Home Medications Medication Instructions Recorded Confirmed sertraline 25 mg tablet 50 mg PO DAILY 10/10/21 10/10/21 Previous Rx's Medication Instructions Recorded amoxicillin 875 mg-potassium 1 tab PO Q12H #20 tab 12/04/21 clavulanate 125 mg tablet Allergies Allergy/AdvReac Type Severity Reaction Status Date / Time No Known Drug Allergies Allergy Verified 10/10/21 11:43 Review of Systems Review of Systems Narrative: GENERAL: Denies chills, fatigue, malaise, fever, sweats. HEENT: Denies sinus pain, ear pain, sore throat, difficulty swallowing, dizziness. RESPIRATORY: Denies dyspnea, cough, wheezing, hemoptysis, sputum. CARDIOVASCULAR: Denies chest pain, palpitations, orthopnea, edema, GASTROINTESTINAL: Denies nausea, vomiting, abdominal pain, diarrhea, constipation, melena. : Denies dysuria, frequency, incontinence, hematuria, urinary retention. MUSCULOSKELETAL: denies weakness, joint pain, or bony pain SKIN: See HPI NEUROLOGIC: Denies weakness, headache, numbness, change in speech, confusion, seizures, incoordination. PSYCHIATRIC: No concerning psychosocial issues. 12 point review of systems is negative except for those stated above Patient History Social History household members: spouse Smoking Status: Never smoker alcohol intake: never Smoking Status: Never smoker Substance Use Type: does not use Exam Narrative Exam Narrative: GEN: AOx3 and in mild distress EYES: Pupils are equal, round, and reactive to light and accommodation. Extraoccular muscles are intact bilaterally. There is no subconjunctival hemorrh age or exudate. CHEST: Lungs are clear to auscultation bilaterally and free of wheezes, rales, or rhonchi. Heart rate is regular rhythm, there are no murmurs, clicks, rubs, or gallops. There is no chest wall tenderness. ABD: Abdomen is soft and nontender. There is no guarding or rebound. Bowel sounds are normal in all 4 quadrants. There is no mass or organomegaly. EXT: Full but painful range of motion of all fingers on right hand including the thumb. Small, nonbleeding puncture wound near the thenar eminence without evidence of foreign body or active bleeding. Wounds not appropriate for closure Full painless ROM of all extremities with no loss of sensation or strength. SKIN: Warm, pink, and dry. No erythema or rash Initial Vital Signs Initial Vital Signs: Vital Signs Temperature 97.9 F 12/04/21 16:32 Pulse Rate 76 12/04/21 16:32 Respiratory Rate 18 12/04/21 16:32 Blood Pressure 122/71 12/04/21 16:32 Pulse Oximetry 97 12/04/21 16:32 Course Orders Ordered: Discontinued Medications Amoxicillin/Clavulanate Potassium (Amoxicillin/Clav 875/125 Mg) 1 tab PO NOW ONE Stop: 12/04/21 20:53 Last Admin: 12/04/21 20:59 Dose: 1 tab Documented by: PAULINE Diphtheria/Tetanus/Acell Pertussis (Tet,Diph,Pertuss(Acell),Vac/Pf 0.5 Ml Syringe) 0.5 ml IM .ONCE ONE Stop: 12/04/21 16:40 Last Admin: 12/04/21 16:42 Dose: 0.5 ml Documented by: SERGEI [facility] - Wound/Laceration Imaging Data Extremity x-ray #1: Radiologist's Impression: Veronika Qureshi??71??F??1950 ? Allergy/Adv: No Known Drug Allergies Close Hand X-Ray (Signed) Jeremiah Helm - 12/04/21 Telemetry Strips 10/10/21 Mammogram Screening (Signed) Kunal Rubi - 09/13/21 Mammogram Screening (Signed) Faustino Pedro - 08/24/20 Chest X-Ray (Signed) Sam Martinez - 05/04/20 Mammogram Screening (Signed) Isabelle Moraes - 08/08/19 Mammogram Screening (Signed) Isabelle Moraes - 07/22/18 Bone Densitometry 07/22/18 Launch?[address] [address] XRay Report Signed Patient: Veronika Qureshi MR#: [id number] : 1950 Acct:[id number] Age/Sex: 71 / F Date of Service: 12/04/21 Loc: ED Accession Number: [id number] ?? Procedure: XR hand RT min 3V Ordering Provider: Abena Ron D.O. PROCEDURE:? XR HAND RT MIN 3V ? INDICATIONS:? dog bite ? TECHNIQUE:? 3 views of the hand(s) acquired.? ? COMPARISON:? None. ? FINDINGS:? ? Bones:? Primary osteoarthritis of the wrist and hand.? Severe 2nd through 5th DIP degenerative change.? Severe 1st carpometacarpal degenerative change.? No acute fracture dislocation.? No suspicious bony lesions. ? Soft tissues:? No suspicious soft tissue calcifications.? No soft tissue gas or foreign body. ? ? IMPRESSION:? Primary osteoarthritis. No evidence acute bony abnormality of the right hand. ? If clinical suspicion and/or symptoms persist, further assessment with repeat plain films, or advanced imaging (e.g., CT, MRI, or bone scan) may be helpful for further assessment. ? Dictated by: Jeremiah Helm M.D. on 12/04/2021 at 17:16 ? ? Approved by: Jeremiah Helm M.D. on 12/04/2021 at 17:19? [facility] Narrative Medical decision making narrative: Patient with provoked dog bite on right hand, very minimal injuries, no wounds appropriate for closure and x-ray demonstrate no fracture or foreign body. Tetanus is updated and patient given 1st dose of antibiotics with prescription sent to the pharmacy of her choice. We did discuss rabies and given that there is not been a documented case in the [facility] since they have been testing we elected not to employ this modality. She intends to go back to [place] this evening and will follow-up with her primary care provider. She has been given return precautions and questions have been answered to her apparent satisfaction Discharge Plan Departure Patient Disposition: Home Clinical Impression: Dog bite, hand Instructions: DI for Animal Bites Activity Restrictions/Additional Instructions: *You have been diagnosed with [dog bite in Right Hand. As we discussed your history and physical exam is very reassuring. You do not need any sutures and your xray shows no evidence of fracture or foreign body. Also, we discussed rabies vaccination, however we generally do not advise the use of the rabies vaccine for dog bites as there has never been a documented case of rabies in a dog in the [facility]. *What to do: *Please continue to take your regular medications as directed. [x] New medication prescriptions sent to your pharmacy: [ [facility]] [ ] New medication written as a paper prescription [ ] No new medications given *Please follow up with your primary care provider in 2-3 days, call for an appointment. Let them know you were seen in the Emergency Department and that we ask that you be seen in follow up. We will electronically transmit a record of today's note if your PCP is in our system *If you do not have a primary care provider please contact the [facility] Resource line at [phone]. They will ask some questions about your medical history and help get you set up with a doctor in the community. *Return to Emergency Department if you should have any new, worsening or concerning symptoms, such as [fever greater than 101 F, shaking chills, worsening pain, persistent vomiting or other bothersome symptoms] Prescriptions: New amoxicillin-pot clavulanate 875-125 mg tablet 1 tab PO Q12H Qty: 20 0RF No Action sertraline 25 mg tablet 50 mg PO DAILY 0RF Label Comments: take 2 tablet by mouth once daily Referrals: Alberto Mcleod MD [Primary Care Provider] -
== END 2021-12-04 21:03 | disposition home or self-care (01) ==
PROVIDERS: Emergency Provider Emergency Medicine; Family Provider Internal Medicine; PCP Internal Medicine
DX: S61.431A Puncture wound without foreign body of right hand, initial encounter (principal); W54.0XXA Bitten by dog, initial encounter; Y93.K1 Activity, walking an animal; Y92.89 Other specified places as the place of occurrence of the external cause; Z23 Encounter for immunization
CPT/HCPCS: 73130; 90471; 99283; 99284; 90715

== ENCOUNTER → 2022-11-19 11:28 | Outpatient (CLI) | payer MEDICARE, SELFPAY ==
--- NOTE | 2022-11-19 | DI.MG.S_ITS ---
BILATERAL DIGITAL SCREENING MAMMOGRAM 3D/2D WITH CAD: 11/19/2022 CLINICAL: Routine screening. Comparison is made to exams dated: 09/13/2021 mammogram, 08/24/2020 mammogram, 08/08/2019 mammogram, and 07/22/2018 mammogram - [facility]. Both breasts are extremely dense, which lowers the sensitivity of mammography (category d />75% glandular tissue). Current study was also evaluated with a Computer Aided Detection (CAD) system. No significant masses, calcifications, or other findings are seen in either breast. There has been no significant interval change. IMPRESSION: NEGATIVE There is no mammographic evidence of malignancy. A 1 year screening mammogram is recommended. Based on the Tyrer Cuzick model (a risk assessment model) the patient's lifetime risk is 10.2% and her 10 year risk is 7.0%. According to the ACR, ACS, and NCCN guidelines, an annual breast MRI exam along with mammogram is recommended if the patient's lifetime risk is 20% or greater. This exam was interpreted at Station ID: [id number]. NOTE: For mammograms, a report in lay terms will be sent to the patient. Approximately 15% of breast malignancies will not be visualized mammographically. In the management of a palpable breast mass, a negative mammogram must not discourage biopsy of a clinically suspicious lesion. Electronically Signed By: Kunal ruff/chana:11/19/2022 13:45:18 letter sent: Normal Exam ACR BI-RADS Category 1: Negative 3341F
== END ==
PROVIDERS: Family Provider Internal Medicine; PCP Internal Medicine; Referring Provider Internal Medicine; Visit Provider Internal Medicine
DX: Z12.31 Encounter for screening mammogram for malignant neoplasm of breast (principal)
CPT/HCPCS: 77063; 77067

== ENCOUNTER → 2024-04-21 12:30 | Outpatient (CLI) | payer MEDICARE, SELFPAY ==
--- NOTE | 2024-04-21 12:33 | DI.RAD.S_ITS ---
PROCEDURE: XR FOOT LT MIN 3V INDICATIONS: FOOT PAIN TECHNIQUE: 3 views of the foot were acquired. COMPARISON: None. FINDINGS: Bones: Lateral plate and multiple screws transfix an old solid unified calcaneal fracture which is anatomically aligned. Degenerate foreshortening 1st metatarsal appreciated Joints: Mild degeneration seen in all interphalangeal joints.. Soft tissues: No soft tissue abnormality. IMPRESSION: ORIF old calcaneal fracture solid unified and in anatomic alignment Dictated by: Johan Momin M.D. on 04/22/2024 at 6:33 Approved by: Johan Momin M.D. on 04/22/2024 at 6:35
== END ==
PROVIDERS: Family Provider Internal Medicine; PCP Internal Medicine; Referring Provider Internal Medicine; Visit Provider Internal Medicine
DX: M79.672 Pain in left foot (principal); S92.002S Unspecified fracture of left calcaneus, sequela
CPT/HCPCS: 73630

== ENCOUNTER → 2024-11-26 15:07 | Outpatient (CLI) | payer MEDICARE, SELFPAY ==
--- NOTE | 2024-11-26 15:11 | DI.RAD.S_ITS ---
PROCEDURE: XR DEXA AXIAL SKELETON INDICATIONS: F/U OSTEOPENIA COMPARISON: [facility], , XR DEXA AXIAL SKELETON, 07/22/2018, 12:37. FINDINGS: Lumbar Spine: Bone mineral density 0.823 g/cm2, T score -1.9. There is interval 3.5% decrease in total lumbar spine bone mineral density. Left Femoral Neck: Bone mineral density 0.583 g/cm2, T score -2.4. There is interval 10% decrease in left femoral neck bone mineral density. Left Hip: Bone mineral density 0.652 g/cm2, T score -2.4. There is interval 6.8% decrease in total left hip bone mineral density. Fracture Risk Calculation (when applicable): 10-year fracture risk of a major osteoporotic fracture 14 percent and of a hip fracture 3.9 percent. (T score greater or equal to -1.0 to: NORMAL) (T score from -1.1 to -2.4: OSTEOPENIA) (T score less than or equal to -2.5: OSTEOPOROSIS) IMPRESSION: Osteopenia with increased 10 year fracture risk. Follow-up guidelines as follows: Osteoporosis: Consider a repeat DEXA and Vertebral Fracture Assessment (VFA) exam in 2 years or sooner if medically necessary, to reassess this patient's status. Osteopenia: Consider a repeat DEXA in 2-3 years to reassess this patient's status, or if there is a new clinical indication. Normal: Consider a repeat DEXA in 5 years or sooner, or if there is a new clinical indication. All treatment decisions require clinical judgment and consideration of individual patient factors, including patient preferences, comorbidities, previous drug use, risk factors not captured in the FRAX model (e.g., frailty, falls, vitamin D deficiency, increased bone turnover, interval significant decline in bone density ) and possible under- or over-estimation of fracture risk by FRAX. In addition, the NOF Guide recommends that FDA-approved medical therapies be considered in postmenopausal women and men age >= 50 years with a: * Hip or vertebral (clinical or morphometric) fracture * T-score of <=-2.5 at the spine or hip * Ten-year fracture probability by FRAX of >= 3% for hip fracture or >=20% for major osteoporotic fracture. Dictated by: Mitchell Wright M.D. on 11/28/2024 at 12:52 Approved by: Mitchell Wright M.D. on 11/28/2024 at 12:55
--- NOTE | 2024-11-26 15:11 | DI.MG.S_ITS ---
MM screening mammo BI: 11/26/2024. BI-RADS: 1 CLINICAL: 74-year old female for bilateral screening mammogram. Tyrer-Cuzick lifetime risk of 6.0%. No personal or first-degree family history of breast cancer. PRIOR EXAMS 11/19/2022, 09/13/2021, 08/24/2020, 08/08/2019, 07/22/2018. MAMMOGRAPHY TECHNIQUE: 2D and 3D (tomosynthesis) digital mammographic views obtained, with additional images as needed for full coverage. Current study was also evaluated with a Computer Aided Detection (CAD) system. DENSITY D. The breasts are extremely dense, which lowers the sensitivity of mammography. MAMMOGRAPHY FINDINGS Bilateral: No suspicious mass, asymmetry, microcalcification, or other abnormality seen. IMPRESSION: * No evidence of malignancy. RECOMMENDATIONS Bilateral * Annual screening mammography. OVERALL ASSESSMENT CATEGORY BI-RADS-1: Negative. The [employer] recommends annual screening mammography beginning at age 40 for women with average risk of breast cancer. ELECTRONICALLY SIGNED: Kunal Rubi M.D. on 11/27/2024 at 08:45:09 AM PT Interpreting Station ID: [id number]
== END ==
PROVIDERS: Family Provider Internal Medicine; PCP Internal Medicine; Referring Provider Internal Medicine; Visit Provider Internal Medicine
DX: Z78.0 Asymptomatic menopausal state (principal); Z12.31 Encounter for screening mammogram for malignant neoplasm of breast; R92.343 Mammographic extreme density, bilateral breasts; M85.89 Other specified disorders of bone density and structure, multiple sites
CPT/HCPCS: 77063; 77067; 77080

== ENCOUNTER → 2024-12-15 19:14 | Outpatient (CLI) | payer MEDICARE, SELFPAY ==
--- NOTE | 2024-12-15 19:18 | DI.MRI.S_ITS ---
PROCEDURE: MR HEAD/BRAIN WO CON INDICATIONS: MEMORY LOSS TECHNIQUE: Non-contrast axial T1 spin echo, axial T2 fast spin echo, sagittal and axial FLAIR, coronal T2 fast spin echo, axial gradient echo, axial diffusion and ADC through the brain. COMPARISON: None. FINDINGS: Image quality: Excellent. CSF spaces: Ventricles appear symmetric in size and shape. Basal cisterns are patent. No extra-axial fluid collections. Brain: No intracranial bleeds or mass effects. There is cerebral volume loss for age. There are periventricular and deep white matter chronic small vessel ischemic changes. Brainstem appears normal. Diffusion-weighted images show no acute infarct. No chronic ischemic insults. Normal intravascular flow voids are present. Skull and face: Calvarial bone marrow is normal in signal. Orbits are normal. Sinuses: Sinuses and mastoids are clear. IMPRESSION: Mild age-related global volume loss and chronic microvascular ischemic changes are present. No acute intracranial abnormalities. Dictated by: Umang Griffin M.D. on 12/16/2024 at 8:55 Approved by: Umang Griffin M.D. on 12/16/2024 at 8:57
== END ==
PROVIDERS: Family Provider Internal Medicine; PCP Internal Medicine; Referring Provider Internal Medicine; Visit Provider Internal Medicine
DX: G31.84 Mild cognitive impairment of uncertain or unknown etiology (principal); F03.918 Unspecified dementia, unspecified severity, with other behavioral disturbance
CPT/HCPCS: 70551